=== PATIENT | female | born 1950 | race Caucasian/White ===

== ENCOUNTER 2023-07-24 08:44 | Inpatient (IN) | payer MEDICARE, OTHER ==
[2023-07-24 09:16] LABS: #Monocytes 0.5 thou/uL (0.11-0.59); %Basophils 0.1 % (0.0-1.0); %Eosinophils 0.4 % (0.0-10.0); %Lymphocytes 5.4 % (21.0-51.0); %Monocytes 5.8 % (0.0-10.0); %Neutrophils 87.9 % (42.0-75.0); Hematocrit 28.6 % (36.0-47.0); Hemoglobin 9.3 g/dL (12.0-16.0); Mean Corpuscular HGB CONC 32.5 g/dL (32.0-36.0); Mean Corpuscular Hemoglobin 26.3 pg (27.0-31.0); Mean Platelet Volume 9.1 fL (7.4-10.4); Platelet Count 141 10x3/uL (130-400); RBC Distribution Width 13.8 % (11.5-14.5); Red Blood Cell (RBC) Count 3.53 mill/uL (4.20-5.40); White Blood Cell (WBC) Count 7.9 10x3/uL (4.8-10.8)
[2023-07-24 09:39] LABS: ALT (SGPT) 20 U/L (8-55); AST (SGOT) 32 U/L (5-34); Albumin 3.9 g/dL (3.4-4.8); Alkaline Phosphatase 56 U/L (40-110); Anion Gap 11 mmol/L (10-20); BUN (Urea Nitrogen) 10 mg/dL (9.8-20.1); Bilirubin, Total 1.1 mg/dL (0.2-1.2); Calc. Creatinine Clearance 0 mL/min (70-130); Calcium 8.6 mg/dL (7.8-10.44); Carbon Dioxide 22 mmol/L (23-31); Chloride 92 mmol/L (98-107); Estimated GFR 60; Globulin 1.5 g/dL (2.4-3.5); Glucose 169 mg/dL (83-110); Potassium 3.9 mmol/L (3.5-5.1); Protein, Total 5.4 g/dL (5.8-8.1); Sodium 121 mmol/L (136-145)
[2023-07-24 09:39] LABS: Magnesium 1.6 mg/dL (1.6-2.6)
[2023-07-24 10:13] LABS: Troponin I 0.284 ng/mL (< 0.028)
[2023-07-24] MEDS ORDERED: Aspirin Chewable 81 MG TAB ONE (10:30)
[2023-07-24 10:36] LABS: SARS-CoV-2 NAA Rapid Test Not Detected (NotDetected)
[2023-07-24] MEDS ORDERED: Sodium Chloride 0.9% 1,000 ML IV SCH (11:15)
[2023-07-24] MEDS ORDERED: Furosemide 40 MG/4 ML VIAL ONE (11:22)
[2023-07-24] MEDS ORDERED: Dextrose 50% Abboject 50 ML SYRINGE SLOW IVP PRN (12:05)
[2023-07-24] MEDS ORDERED: HumaLOG 300 UNITS/3 ML VIAL SC PRN (12:05)
[2023-07-24] MEDS ORDERED: Glucagon 1 MG/ML KIT IM PRN (12:05)
[2023-07-24] MEDS ORDERED: Dextrose 5% in Water 1,000 ML IV PRN (12:05)
[2023-07-24 12:53] LABS: Critical Call Chem Troponin I RESULT DECREASING; Troponin I 0.251 ng/mL (< 0.028)
[2023-07-24 13:03] LABS: Anion Gap 14 mmol/L (10-20); Carbon Dioxide 20 mmol/L (23-31); Chloride 93 mmol/L (98-107); Potassium 3.9 mmol/L (3.5-5.1); Sodium 123 mmol/L (136-145)
[2023-07-24 13:57] LABS: Bacteria/HPF None Seen HPF (None Seen); Bilirubin Negative (Negative); Blood, Urine Negative (Negative); CAUTI Indications for Culture Pelvic or flank pain; Clarity Clear (Clear); Glucose, Urine (Dipstick) Normal (Negative); Ketone, Urine Negative (Negative); Leukocyte 25 Leu/uL (Negative); Nitrite Negative (Negative); Protein, Urine (Dipstick) Negative (Neg-Trace); RBC/HPF 0-3 HPF (0-3); Specific Gravity, Urine 1.006 (1.002-1.036); Squamous Epithelial 0-3 HPF (0-3); Urobilinogen Normal mg/dL (Less than 2)
[2023-07-24 13:58] LABS: Urine Culture Reflex No No
[2023-07-24] MEDS ORDERED: Acetaminophen 325 MG TAB PO PRN (15:03)
[2023-07-24] MEDS ORDERED: Ondansetron PF 4 MG/2 ML Vial IVP PRN (15:03)
[2023-07-24] MEDS ORDERED: HYDROcodone/Acetaminophen 5/325 mg Tablet PO PRN (15:03)
[2023-07-24 15:45] LABS: Anion Gap 11 mmol/L (10-20); Carbon Dioxide 26 mmol/L (23-31); Chloride 92 mmol/L (98-107); Potassium 3.8 mmol/L (3.5-5.1); Sodium 125 mmol/L (136-145)
[2023-07-24 15:51] LABS: Troponin I 0.329 ng/mL (< 0.028)
[2023-07-24] MEDS: Nicotine 14 MG PATCH TD SCH (16:43)
[2023-07-24] MEDS: Furosemide 40 MG/4 ML VIAL SLOW IVP SCH (16:52)
[2023-07-24 17:56] LABS: Potassium, Urine 13.4 mmol/L
[2023-07-24] MEDS: HYDROcodone/Acetaminophen 5/325 mg Tablet PO PRN (23:27)
[2023-07-25 03:58] LABS: #Eosinphils 0.1 thou/uL (0.0-0.7); #Monocytes 0.6 thou/uL (0.11-0.59); %Basophils 0.2 % (0.0-1.0); %Monocytes 10.1 % (0.0-10.0); %Neutrophils 67.5 % (42.0-75.0); Hematocrit 25.8 % (36.0-47.0); Hemoglobin 8.3 g/dL (12.0-16.0); Mean Corpuscular HGB CONC 32.2 g/dL (32.0-36.0); Mean Corpuscular Hemoglobin 26.3 pg (27.0-31.0); Mean Corpuscular Volume 81.9 fl (78.0-98.0); Mean Platelet Volume 9.4 fL (7.4-10.4); Platelet Count 147 10x3/uL (130-400); Red Blood Cell (RBC) Count 3.15 mill/uL (4.20-5.40); White Blood Cell (WBC) Count 5.9 10x3/uL (4.8-10.8)
[2023-07-25 04:23] LABS: Anion Gap 12 mmol/L (10-20); BUN (Urea Nitrogen) 11 mg/dL (9.8-20.1); Calc. Creatinine Clearance 51 mL/min (70-130); Calcium 8.3 mg/dL (7.8-10.44); Carbon Dioxide 23 mmol/L (23-31); Chloride 96 mmol/L (98-107); Estimated GFR 50; Glucose 126 mg/dL (83-110); Potassium 3.7 mmol/L (3.5-5.1); Sodium 127 mmol/L (136-145)
[2023-07-25] MEDS: Furosemide 40 MG/4 ML VIAL SLOW IVP SCH ×2 (06:13→15:04)
[2023-07-25] MEDS: Aspirin 325 MG TAB PO SCH (08:20)
[2023-07-25 10:23] LABS: Troponin I 0.377 ng/mL (< 0.028)
[2023-07-25 11:38] VITALS: BMI 24.9
[2023-07-25] MEDS: busPIRone HCl 10 MG TAB PO SCH ×2 (15:07→20:11)
[2023-07-25] MEDS ORDERED: Gabapentin 300 MG CAP PO SCH (15:15)
[2023-07-25] MEDS: Nicotine 14 MG PATCH TD SCH (15:17)
[2023-07-25] MEDS: traZODone HCl 150 MG TAB PO SCH (20:11)
[2023-07-25] MEDS: Gabapentin 300 MG CAP PO SCH (20:12)
[2023-07-26 04:29] LABS: #Eosinphils 0.1 thou/uL (0.0-0.7); #Monocytes 0.6 thou/uL (0.11-0.59); #Neutrophils 3.7 thou/uL (1.40-6.50); %Basophils 0.2 % (0.0-1.0); %Eosinophils 1.3 % (0.0-10.0); %Lymphocytes 17.9 % (21.0-51.0); %Monocytes 11.3 % (0.0-10.0); %Neutrophils 69.1 % (42.0-75.0); Hematocrit 26.1 % (36.0-47.0); Hemoglobin 8.2 g/dL (12.0-16.0); Mean Corpuscular HGB CONC 31.4 g/dL (32.0-36.0); Mean Corpuscular Hemoglobin 25.9 pg (27.0-31.0); Mean Corpuscular Volume 82.6 fl (78.0-98.0); Mean Platelet Volume 9.6 fL (7.4-10.4); Platelet Count 136 10x3/uL (130-400); RBC Distribution Width 14.4 % (11.5-14.5); Red Blood Cell (RBC) Count 3.16 mill/uL (4.20-5.40); White Blood Cell (WBC) Count 5.3 10x3/uL (4.8-10.8)
[2023-07-26] MEDS: HYDROcodone/Acetaminophen 5/325 mg Tablet PO PRN (04:30)
[2023-07-26 04:59] LABS: Anion Gap 10 mmol/L (10-20); BUN (Urea Nitrogen) 12 mg/dL (9.8-20.1); Calc. Creatinine Clearance 42 mL/min (70-130); Calcium 8.7 mg/dL (7.8-10.44); Carbon Dioxide 28 mmol/L (23-31); Chloride 98 mmol/L (98-107); Estimated GFR 42; Glucose 148 mg/dL (83-110); Potassium 3.5 mmol/L (3.5-5.1); Sodium 132 mmol/L (136-145)
[2023-07-26] MEDS: Furosemide 40 MG/4 ML VIAL SLOW IVP SCH (06:26)
[2023-07-26] MEDS ORDERED: Lactated Ringer's 1,000 ML IV SCH (08:15)
[2023-07-26] MEDS ORDERED: FLUoxetine HCl 10 MG CAP PO SCH (09:00)
[2023-07-26] MEDS: Gabapentin 300 MG CAP PO SCH ×4 (09:44→20:38)
[2023-07-26] MEDS: busPIRone HCl 10 MG TAB PO SCH ×3 (09:44→20:39)
[2023-07-26] MEDS: Aspirin 325 MG TAB PO SCH (09:44)
[2023-07-26] MEDS: Nicotine 14 MG PATCH TD SCH (16:08)
[2023-07-26] MEDS: traZODone HCl 150 MG TAB PO SCH (20:38)
[2023-07-26] MEDS ORDERED: Atorvastatin Calcium 40 MG TAB PO SCH (21:00)
[2023-07-26 23:46] VITALS: BP 95/56; TEMP 98.3
== END 2023-07-27 01:57 | disposition short-term general hospital (02) | DRG 280 ==
LOC: ERS 08:44 → ERHOLD 11:11 → IMCU/EMU 14:54 → 2SE 23:08
PROVIDERS: ADMIT Internal Medicine; ATTEND Internal Medicine
DX: I21.4 Non-ST elevation (NSTEMI) myocardial infarction (principal); I50.23 Acute on chronic systolic (congestive) heart failure; J96.01 Acute respiratory failure with hypoxia; I13.0 Hypertensive heart and chronic kidney disease with heart failure and stage 1 through stage 4 chronic kidney disease, or unspecified chronic kidney disease; E87.1 Hypo-osmolality and hyponatremia; E87.20 Acidosis, unspecified; N17.9 Acute kidney failure, unspecified; I42.9 Cardiomyopathy, unspecified; E11.51 Type 2 diabetes mellitus with diabetic peripheral angiopathy without gangrene; F17.210 Nicotine dependence, cigarettes, uncomplicated; F32.A Depression, unspecified; E88.09 Other disorders of plasma-protein metabolism, not elsewhere classified; E78.5 Hyperlipidemia, unspecified; N18.30 Chronic kidney disease, stage 3 unspecified; D63.1 Anemia in chronic kidney disease; E11.22 Type 2 diabetes mellitus with diabetic chronic kidney disease; I35.0 Nonrheumatic aortic (valve) stenosis; Z98.41 Cataract extraction status, right eye; Z98.42 Cataract extraction status, left eye; Z79.899 Other long term (current) drug therapy; Z86.73 Personal history of transient ischemic attack (TIA), and cerebral infarction without residual deficits; Z90.49 Acquired absence of other specified parts of digestive tract; Z98.890 Other specified postprocedural states; Z11.52 Encounter for screening for COVID-19
CPT/HCPCS: 36415; 36416; 71045; 71046; 80048; 80053; 81001; 82436; 83735; 83880; 83930; 83935; 84133; 84300; 84484; 85025; 93005; 93306; 96361; 96372; 96374; J1650; J1815; J1940; J2405; J7120